=== PATIENT | female | born 1950 | race Caucasian/White ===

== ENCOUNTER 2021-10-09 14:44 | Emergency (ER) | payer MEDICARE, OTHER ==
[~2021-10-09] VITALS: Ht 157.5 cm; Wt 52.2 kg
--- NOTE | 2021-10-09 15:06 | NUR ---
PT BIBDAUGHTER C/O BODY ACHE, CHILLS, WEAKNESS, TESTED COVID+ 09/28/21. RECENT HOME COVID HOME TEST (+) ON 10/08/20. A/OX.4 PT TOLERATING R/A WELL AT 95%. CONNECT PT TO POX AND MONITOR.
[2021-10-09] MEDS ORDERED: ACETAMINOPHEN ES 500 MG TABLET ONE (15:37)
[2021-10-09] MEDS ORDERED: GUAIFENESIN/D-METHORPHAN HB 5 ML UDC ONE (15:37)
--- NOTE | 2021-10-09 15:54 | NUR ---
R HAND #20G S/L; PATENT AND INTACT. BLOOD COLLECTED AND GIVEN TO LAB ANTIONETTE
--- NOTE | 2021-10-09 15:56 | NUR ---
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
[2021-10-09] MEDS ORDERED: ACETAMINOPHEN ES 500 MG TABLET PO ONE (16:00)
[2021-10-09] MEDS ORDERED: GUAIFENESIN/D-METHORPHAN HB 5 ML UDC PO ONE (16:00)
[2021-10-09] MEDS ORDERED: IV NS 0.9% 1,000 ML BAG IV ONE (16:00)
[2021-10-09 16:06] LABS: BASOPHILS % (AUTO) 0.3 % (0.0-2.0); EOSINOPHILS % (AUTO) 0.3 % (0.0-6.0); HEMATOCRIT 40 % (33-45); HEMOGLOBIN 13.5 g/dL (11.5-14.8); LYMPHOCYTES # (AUTO) 0.7 K/uL (0.8-4.8); LYMPHOCYTES % (AUTO) 9.2 % (20.0-44.0); MEAN CORPUSCULAR HGB CONC 33 g/dl (31.0-36.0); MEAN CORPUSCULAR VOLUME 87 fL (82-100); MONOCYTES # (AUTO) 0.5 K/uL (0.1-1.30); MONOCYTES % (AUTO) 7.2 % (2.0-12.0); NEUTROPHILS # (AUTO) 6.2 K/uL (1.8-8.9); PLATELET COUNT (AUTO) 281 K/uL (150-450); RED BLOOD CELL COUNT(AUTO) 4.64 MIL/uL (4.0-5.2); WHITE BLOOD COUNT (AUTO) 7.4 K/uL (4.3-11.0)
[2021-10-09 16:13] LABS: CALCIUM, SERUM 8.4 mg/dL (8.5-10.1); CARBON DIOXIDE 27 mmol/L (21-32); CHLORIDE 97 mmol/L (98-107); CREATININE 0.9 mg/dL (0.6-1.3); GLUCOSE 97 mg/dL (74-106); POTASSIUM 3.4 mmol/L (3.5-5.1); SODIUM SERUM 134 mmol/L (136-145); UREA NITROGEN, BLOOD 19 mg/dL (7-18)
[2021-10-09] MEDS ORDERED: IBUP-1957 PO (16:49)
[2021-10-09] MEDS ORDERED: GUAI1TBM19 PO (16:49)
[2021-10-09] MEDS ORDERED: BENZ-13 PO (16:49)
[2021-10-09] MEDS ORDERED: ACET-2605 PO (16:49)
--- NOTE | 2021-10-09 17:00 | NUR ---
PHILLIP DORSEY WILL ARCHITECT MARINE PT IN 10-15 MINS.
[2021-10-09 17:23] VITALS: BP 123/65
--- NOTE | 2021-10-09 17:23 | NUR ---
Patient discharged to home in stable condition. RX Written and verbal after care instructions given. Patient verbalizes understanding of instruction. PT ambulatory with a steady gait
== END 2021-10-09 17:24 | disposition home or self-care (01) ==
LOC: ER 14:52
DX: U07.1 COVID-19 (principal)
CPT/HCPCS: 36415; 71045; 80048; 84484; 85025; 93005; 96360; 99285; J7030